=== PATIENT | male | born 2000 | race African-American/Black ===

== ENCOUNTER 2023-08-01 12:23 | Outpatient (CLI) | payer OTHER, SELFPAY | END 2023-08-01 12:24 | disposition home or self-care (01) | LOC: AMB 08-31 13:24 | PROVIDERS: Visit Provider Family Medicine | DX: R06.02 Shortness of breath (principal); R50.9 Fever, unspecified | CPT/HCPCS: A0425; A0427 ==

== ENCOUNTER 2023-08-01 13:00 | Emergency (ER) | payer OTHER, SELFPAY ==
[2023-08-01 13:11] VITALS: BP 141/76; PULSE 100; RESP 18; TEMP 38.3; O2SAT 100; BMI 24.4
--- NOTE | 2023-08-01 13:17 | ED_ITS ---
HPI - General Adult General Chief complaint: Back Injury/Pain Stated complaint: fever,weakness,difficulty breathing Time Seen by Provider: 08/01/23 13:06 History of Present Illness HPI narrative: Patient called campus EMS for severe back pain that began at 5 AM. Pain is constant and all over back. Temperature was also detected. 23-year-old presenting to the emergency department complaint of severe low back pain beginning about 8 hours ago. Will get about 5 this morning took some ibuprofen for some low back pain he was noticing. Also he felt hot. Has taken another dose round 11:00 a.m.. Foreign mg each time. No dysuria frequency urgency. No nausea. No abdominal pain. He is feeling pain that goes from his low back up to the mid back midback in particular gestures to the low thoracic area where he is having maybe spasms of pain is how I would interpret it. Around 11:00 a.m. had escalation of this discomfort and friend made him some tea which they thought might help. His eyes are watering here as were talking which he would attribute to the degree of pain he is having. Does admit to an underlying history of mild scoliosis and with some back aches intermittently but nothing like this. No new trauma. Related Data Previous Rx's Medication Instructions Recorded clindamycin phosphate 1 % topical 1 applic topical QHS #60 mL 09/13/22 solution fluocinolone 0.01 % topical 1 applic topical BID #60 mL 09/13/22 solution minocycline 100 mg capsule 100 mg PO BID #180 caps 09/13/22 Allergies Allergy/AdvReac Type Severity Reaction Status Date / Time No Known Drug Allergies Allergy Verified 07/25/22 13:29 Review of Systems Status of ROS: Reports: 6 or more systems reviewed and unremarkable except as noted in History and below [facility] Social History Smoking Status: Never smoker Do you use any of these nicotine containing products: None Second hand tobacco smoke exposure: No How often do you have a drink containing alcohol: never How often do you have six or more drinks on one occasion: Never AUDIT-C Alcohol total score: 0 Non-prescribed substance use: denies use service: No Exam Narrative: Exam Narrative: Well-nourished. Pleasant. Lying curled up a little bit on his left side. Eyes are watering a little bit. Sclera is injected. Breathing easily. Lungs are clear. Taking deep breath he says exacerbates discomfort. Not exactly reproducible pain over the back. Maybe a little sore. Well-perfused peripherally. Heart in elevated to tachycardic regular rhythm. Abdomen is flat soft and nontender. Oropharynx is moist without erythema. Further exam of the back and assessing alignment is requested, there is some mild elevation of the right shoulder. Const: Vital Signs, click to edit/add: Vital Signs - 24 hr 08/01/23 13:11 Temperature 101.0 F H Pulse Rate [Pulse Oximeter] 100 Respiratory Rate 18 Blood Pressure [Ri ght Upper Arm] 141/76 H Pulse Oximetry 100 Oxygen Delivery Me thod Room Air Documenting provider has reviewed patient's vital signs: yes Course Vital Signs Vital signs: Initial Vital Signs Temperature 101.0 F H 08/01/23 13:11 Temperature Source Oral 08/01/23 13:11 Pulse Rate 100 08/01/23 13:11 Respiratory Rate 18 08/01/23 13:11 Blood Pressure 141/76 H 08/01/23 13:11 Blood Pressure Mean 97 08/01/23 13:11 Pulse Oximetry 100 08/01/23 13:11 Oxygen Delivery Method Room Air 08/01/23 13:11 Vital Signs Temperature 101.0 F H 08/01/23 13:11 Pulse Rate 100 08/01/23 13:11 Respiratory Rate 18 08/01/23 13:11 Blood Pressure 141/76 H 08/01/23 13:11 Pulse Oximetry 100 08/01/23 13:11 Oxygen Delivery Method Room Air 08/01/23 13:11 Temperature 101.0 F H 08/01/23 13:11 Pulse Rate 100 08/01/23 13:11 Respiratory Rate 18 08/01/23 13:11 Blood Pressure 141/76 H 08/01/23 13:11 Pulse Oximetry 100 08/01/23 13:11 Oxygen Delivery Method Room Air 08/01/23 13:11 Medications Administered Medications: Discontinued Medications Generic Name Dose Route Start Last Admin Trade Name Freq PRN Reason Stop Dose Admin Sodium Chloride 1,000 mls @ 1,000 mls/hr 08/01/23 13:35 08/01/23 14:45 0.9 % Sodium Chloride 1000 Ml IV 08/01/23 14:34 Infused .Q1H ONE Infusion Ketorolac Tromethamine 15 mg 08/01/23 13:35 08/01/23 13:45 Ketorolac 15 Mg/Ml Inj IVP 08/01/23 13:36 15 mg ONCE ONE Administration Morphine Sulfate 4 mg 08/01/23 14:42 08/01/23 15:00 Morphine 4 Mg/Ml Inj IVP 08/01/23 14:43 4 mg ONCE ONE Administration Medical Decision Making MDM Narrative Medical decision making narrative: I would suspect more of a viral myalgia maybe with spasms of pain exacerbated by underlying scoliosis. IV fluids would likely help along with ketorolac. In spite of total of 800 mg of ibuprofen taken this morning I think we can re-dose with NSAID. Pending triple swab and urinalysis. Influenza cases diagnosed in the community today. Still noting significant discomfort was given low-dose morphine. Overall improved on reassessment. Indeed positive for influenza which I think is the most likely explanation for presentation here today. See patient discharge plan Lab Data Lab results reviewed: Yes I reviewed the patient's lab results Labs: Lab Results 08/01/23 Range/Units 13:10 Urine Color Yellow (Yellow) Urine Appearance Slightly Cloudy A (Clear) Urine pH 8.5 (5.0-8.5) Ur Specific [place] 1.020 (1.000-1.030) Urine Protein Negative (Negative) Urine Glucose (UA) Negative (Negative) Urine Ketones Negative (Negative) Urine Blood Negative (Negative) Urine Nitrite Negative (Negative) Urine Bilirubin Negative (Negative) Urine Urobilinogen 1.0 (0.2-1.0) Ur Leukocyte Esterase Negative (Negative) Urine RBC 0-2 (0-2) Urine WBC 0-2 (0-5) Ur Squamous Epith Cells None (None-Few) Amorphous Sediment Many A (None) Urine Bacteria None (None) SARS-CoV-2 (PCR) Negative SARS-CoV-2 (Negative) Influenza Type A (PCR) POSITIVE PCR FLU A A (Negative) Influenza Type B (PCR) Negative PCR FLU B (Negative) RSV (PCR) Negative PCR RSV (Negative) Discharge Plan Discharge Clinical Impression: Influenza A, Myalgia due to viral infection Patient Disposition: Home w/ Parent or Adult Instructions: Influenza (ED) Additional Instructions: important to stay well hydrated. Can take up to 800 mg of ibuprofen and up to 1000 mg of acetaminophen per dose. You can rotate these every 4 hours for pain control and symptom relief. Alternative to the ibuprofen might be up to 500 mg of naproxen 2 times daily. Tamiflu from [facility]. Return for persistent increasing shortness of breath or uncontrolled fever. Prescriptions: No Action minocycline 100 mg capsule 100 mg PO BID Qty: 180 0RF clindamycin phosphate 1 % solution 1 applic topical QHS Qty: 60 1RF fluocinolone 0.01 % solution 1 applic topical BID Qty: 60 2RF Follow Up/Referrals: Provider,Not a Local [Primary Care Provider] - Stand Alone Forms: [employer] Info Instructions
[2023-08-01 13:24] LABS: Appearance Urine Slightly Cloudy (Clear); Bilirubin Urine Negative (Negative); Blood Urine Negative (Negative); Color Urine Yellow (Yellow); Glucose Urine Negative (Negative); Ketones Urine Negative (Negative); Leukocyte Esterase Urine Negative (Negative); Nitrite Urine Negative (Negative); Protein Urine Negative (Negative); pH Urine 8.5 (5.0-8.5)
[2023-08-01 13:38] LABS: Amorphous Sediment Urine Many; RBC Urine 0-2 (0-2); WBC Urine 0-2 (0-5)
[2023-08-01] MEDS: KETOROLAC 15 MG/ML inj IVP (13:45)
[2023-08-01] MEDS: 0.9 % SODIUM CHLORIDE 1000 ml 1,000 ML IV (13:45)
[2023-08-01 13:58] LABS: PCR FLU A POSITIVE PCR FLU A (Negative); PCR FLU B Negative PCR FLU B (Negative); PCR RSV Negative PCR RSV (Negative)
[2023-08-01 14:08] LABS: SARS PCR* Negative SARS-CoV-2 (Negative)
[2023-08-01] MEDS: MORPHINE 4 MG/ML INJ IVP (15:00)
== END 2023-08-01 15:27 | disposition home or self-care (01) ==
PROVIDERS: Emergency Provider Family Medicine
DX: J09.X2 Influenza due to identified novel influenza A virus with other respiratory manifestations (principal)
CPT/HCPCS: 81001; 87631; 95992; 96374; 96375; 99283; 99284; J1885; J2270; J7030

== ENCOUNTER 2024-08-03 06:23 | Emergency (ER) | payer BC, SELFPAY ==
--- NOTE | 2024-08-03 06:24 | ED_ITS ---
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 Well controlled) presenting to the ER today for evaluation of burning epigastric abdominal pain. He has no history of GERD or heartburn. He has been feeling normally lately. No recent illness. No fever chills. No nausea vomiting. No diarrhea. Normal bowel movements. Normal urination. Ate a normal meal diet today but this evening had some milk that was by 1 day. He is worried that the milk may have been bad. Since about 11:00 p.m. he has been experiencing some burning epigastric discomfort. It has kept him awake from sleeping. No other symptoms overnight. The pain is not been migratory. No clear exacerbating or alleviating factors. He tried to take some ibuprofen but it did not help. He is not nauseous. No vomiting. Bowel movements nor were normal yesterday. He has no previous abdominal surgeries. No history of diabetes. No drugs or alcohol. Related Data Previous Rx's ?Medication ?Instructions ?Recorded clindamycin phosphate 1 % topical 1 applic topical QHS #60 mL 09/13/22 solution fluocinolone 0.01 % topical 1 applic topical BID #60 mL 09/13/22 solution minocycline 100 mg capsule 100 mg PO BID #180 caps 09/13/22 Allergies Allergy/AdvReac Type Severity Reaction Status Date / Time No Known Drug Allergies Allergy Verified 08/03/24 07:03 [facility] Social History Smoking Status: Never smoker Do you use any of these nicotine containing products: None Second hand tobacco smoke exposure: No How often do you have a drink containing alcohol: never How often do you have six or more drinks on one occasion: Never AUDIT-C Alcohol total score: 0 Non-prescribed substance use: denies use service: No Exam Narrative: Exam Narrative: Constitutional: Appears well-developed and well-nourished. Alert. Conversant. Non toxic. Prefers to sit up because lying back makes his stomach pain her little bit worse. HENT: Head: Atraumatic. Nose: Nose normal. Mouth/Throat: Oral mucosa is clear and moist. no trismus. Pharynx normal. Tonsils symmetric. No tonsillar enlargement, erythema, or exudate. Eyes: Conjunctivae normal. EOM normal. Pupils equal, round, and reactive to light. No scleral icterus. Neck: Normal range of motion. Neck supple. No tracheal deviation present. Cardiovascular: Normal rate, regular rhythm. No gallop. No friction rub. No murmur heard. Symmetric radial artery pulses Pulmonary/Chest: Effort normal. No stridor. No respiratory distress. No wheezes. No rales. No rhonchi . No tenderness. Abdominal: Soft. Bowel sounds normal. No distension. No mass. Epigastric > upper periumbilical tenderness. No right upper quadrant tenderness. No Sun sign. No left upper quadrant tenderness. Negative hepatosplenomegaly. No CVA tenderness. No lower abdominal tenderness. He does have a nontender soft 2-3 cm umbilical hernia defect that I do not think contains bowel. No rebound. No guarding. Musculoskeletal: RUE: Normal range of motion. No tenderness. No deformity LUE: Normal range of motion. No tenderness. No deformity RLE: Normal range of motion. No edema. No tenderness. No deformity LLE: Normal range of motion. No edema. No tenderness. No deformity Neurological: Alert and oriented to person, place, and time. Normal strength. CN II-VII intact. No sensory deficit. GCS eye subscore is 4. GCS verbal subscore is 5. GCS motor subscore is 6. Normal coordination Skin: Skin is warm and dry. No rash noted. No pallor. Normal capillary refill. Psychiatric: Normal mood. Normal affect. Const: Vital Signs, click to edit/add: Vital Signs - 24 hr 08/03/24 06:31 08/03/24 06:58 08/03/24 07:30 Temperature 98.3 F Pulse Rate [Pulse Oximeter] 73 68 Respiratory Rate 16 16 Blood Pressure [Ri ght Upper Arm] 149/94 H 133/80 Pulse Oximetry 100 100 98 Oxygen Delivery Me thod Room Air Room Air Course Course ED Course: After GI cocktail patient experience nausea and vomiting with no her resolution of pain. Will order IV, IV nausea and pain medication, labs, CT imaging. At this point presentation still most consistent with probable possible food-borne illness from milk or possibly a viral illness or possibly gastritis. Differential would also include early appendicitis, diverticulitis, colitis, among others Reevaluation(s) Reevaluation #1: Recheck-resting comfortably in bed. Nausea and pain resolved after meds. Feeling much better. Vital Signs Vital signs: Initial Vital Signs Temperature 98.3 F 08/03/24 06:31 Temperature Source Temporal Artery Scan 08/03/24 06:31 Pulse Rate 73 08/03/24 06:31 Respiratory Rate 16 08/03/24 06:31 Blood Pressure 149/94 H 08/03/24 06:31 Blood Pressure Mean 112 H 08/03/24 06:31 Blood Pressure Position Sitting 08/03/24 06:31 Pulse Oximetry 100 08/03/24 06:31 Oxygen Delivery Method Room Air 08/03/24 06:31 Vital Signs Temperature 98.3 F 08/03/24 06:31 Pulse Rate 73 08/03/24 06:31 Respiratory Rate 16 08/03/24 06:31 Blood Pressure 149/94 H 08/03/24 06:31 Pulse Oximetry 100 08/03/24 06:31 Oxygen Delivery Method Room Air 08/03/24 06:31 Temperature 98.3 F 08/03/24 06:31 Pulse Rate 68 08/03/24 07:30 Respiratory Rate 16 08/03/24 07:30 Blood Pressure 133/80 08/03/24 07:30 Pulse Oximetry 98 08/03/24 07:30 Oxygen Delivery Method Room Air 08/03/24 07:30 Medications Administered Medications: Generic Name Dose Route Start Last Admin Trade Name Freq PRN Reason Stop Dose Admin Hydromorphone HCl 0.5 mg 08/03/24 06:44 08/03/24 06:53 Hydromorphone 0.5 Mg/0.5 Ml Inj IVP 0.5 mg Q1H PRN Administration Pain Discontinued Medications Generic Name Dose Route Start Last Admin Trade Name Freq PRN Reason Stop Dose Admin Lidocaine/Aluminum/Magnesium/Simeth 30 ml 08/03/24 06:37 08/03/24 06:41 Gi Cocktail (Visc Lido/Antacid) 30 Ml PO 08/03/24 06:38 30 ml ONCE ONE Administration Ondansetron HCl 4 mg 08/03/24 06:44 08/03/24 06:53 Ondansetron 2 Mg/Ml Inj IVP 08/03/24 06:45 4 mg ONCE ONE Administration Medical Decision Making MDM Narrative Medical decision making narrative: Presented to the Emergency Department with Upper/epigastric abdominal pain. The differential diagnosis of abdominal pain includes: GERD, gastritis, Appendicitis, Bowel Obstruction, Ulcer, Ischemia, Cholecystitis, Diverticulitis, Pancreatitis, Enteritis/Colitis, amongst many other etiologies. he is not having any lower abdominal pain or urinary symptoms to suggest UTI. Incidentally, he does have a soft, nontender, small umbilical hernia which is not the source for his pain today.Laboratory testing does not reveal a cause for the patient's pain. CT abdomen pelvis noted to be normal. The exact etiology of the abdominal pain is not clear at this time. however he suspects it may have been triggered by drinking some milk that was last night. No life threatening cause or need for emergent surgery or hospital admission is detected today. The patient was advised that if symptoms do not completely resolve within another 12-24 hours re-evaluation with primary care or return to the ED is indicated. The patient also understands that if they worsen, they should return to the ER right away. I discussed the uncertainty about the diagnosis and answered the patient's questions. Abdominal pain return precautions discussed.[] Lab Data Labs: Lab Results 08/03/24 Range/Units 06:55 WBC 7.01 (4.50-11.00) K/uL RBC 6.39 H (4.30-5.90) m/uL Hgb 13.5 (13.5-17.5) gm/dL Hct 44.4 (37.0-53.0) % MCV 70 L (80-100) fL MCH 21 L (26-34) pg MCHC 30 L (32-36) gm/dL RDW Coeff of Yvette 14.7 (11.5-15.5) % Plt Count 210 (140-440) K/uL Neut % (Auto) 65.7 (42.0-72.0) % Lymph % (Auto) 21.5 (20-44) % [place] % (Auto) 7.3 (0.0-11.0) % Eos % (Auto) 4.4 (0.0-7.0) % Baso % (Auto) 0.4 (0.0-3.0) % Neut # (Auto) 4.60 (1.7-7.0) K/uL Lymph # (Auto) 1.51 (0.90-2.90) K/uL [place] # (Auto) 0.50 (0.00-0.90) K/UL Eos # (Auto) 0.31 (0.00-0.50) K/uL Baso # (Auto) 0.03 (0.00-0.30) K/uL Abs Immat Gran (auto) 0.05 (0.00-0.30) K/uL Imm/Tot Granulo (auto) 0.7 % Diff Slide Review Acceptable Review (Acceptable) Sodium 139 (135-149) mmol/L Potassium 4.0 (3.6-5.1) mmol/L Chloride 103 (96-114) mmol/L Carbon Dioxide 26 (20-32) mmol/L Anion Gap 10 (7-15) mEq/L BUN 14 (5-24) mg/dL Creatinine 1.0 (0.5-1.5) mg/dL Estimated Creat Clear 115.58 Estimated GFR 106 ml/min Glucose 127 H (60-115) mg/dL Calcium 9.6 (8.4-10.6) mg/dL Total Bilirubin 0.3 (0.1-1.5) mg/dL AST 27 (12-35) U/L ALT 19 (4-50) U/L Alkaline Phosphatase 74 (40-150) U/L Total Protein 8.5 H (6.0-8.3) g/dL Albumin 5.0 (3.3-5.0) g/dL Lipase 145 (23-300) U/L Imaging Data CT scan - abdomen: Attestation: I have reviewed the pertinent imaging results. Radiologist's impression: IMPRESSION: 1. There is a small fat containing umbilical hernia that also contains a loop of small bowel. The fat in this area does not appear to be inflamed and the loop of bowel does not appear to be associated with obstruction or inflammation. Correlate with point tenderness in this area. 2. Moderate diffuse colonic fecal retention without evidence of mechanical obstruction of the large bowel. The appendix is well seen and appears normal. 3. Otherwise overall unremarkable CT examination of the abdomen and pelvis. Discharge Plan Discharge Clinical Impression: Abdominal pain, acute, epigastric Patient Disposition: Home, Self-Care Condition: Stable Instructions: Abdominal Pain (ED) Additional Instructions: please come back to the ER right away if you have worsening symptoms, new or changing symptoms such as new fever or chills, uncontrolled nausea vomiting, bloody vomit or bloody stool, pain moving to her lower abdomen or through to her back, or if you have any other concerns. Please recheck with your doctor or come back to the ER in 24 hours if your pain is not resolving. Prescriptions: No Action minocycline 100 mg capsule 100 mg PO BID Qty: 180 0RF clindamycin phosphate 1 % solution 1 applic topical QHS Qty: 60 1RF fluocinolone 0.01 % solution 1 applic topical BID Qty: 60 2RF Follow Up/Referrals: Provider,Not a Local [Primary Care Provider] - Stand Alone Forms: [employer] Info Instructions
[2024-08-03 06:31] VITALS: BP 149/94; PULSE 73; RESP 16; TEMP 36.8; O2SAT 100; BMI 23.7
[2024-08-03] MEDS: GI COCKTAIL (VISC LIDO/ANTACID) 30 ML PO (06:41)
--- NOTE | 2024-08-03 06:44 | CRLHL7_ITS ---
For Patients: As a result of the 21st Century Cures Act, medical imaging exams and procedure reports are released immediately into your electronic medical record. You may view this report before your referring provider. If you have questions, please contact your health care provider. INDICATION: Epigastric abdominal pain. Vomiting. COMPARISON: None TECHNIQUE: CT examination of the abdomen and pelvis was performed following the uneventful intravenous administration of 81 cc of Isovue 370. Thin section axial images were obtained from the lung bases through the pubic symphysis. Oral contrast was not administered. Please note that all CT scans at this facility use dose modulation, iterative reconstruction, and/or weight-based dosing when appropriate to reduce radiation dose to as low as reasonably achievable. FINDINGS: LUNG BASES: The lung bases as visualized appear normal.The heart size is normal at the lung bases. LIVER/BILIARY SYSTEM:The liver is normal in size and configuration. There is no focal mass and there is no intra- or extra hepatic biliary ductal dilatation.The gall bladder appears normal. ADRENALS: Normal KIDNEYS, URETERS and BLADDER:The kidneys appear normal. No visible mass, calculus or hydronephrosis. The ureters and bladder as visualized appear normal. SPLEEN:Normal appearance. PANCREAS: Appears normal. RETROPERITONEUM and MESENTERY: There is no mass, adenopathy or aortic aneurysm. GASTROINTESTINAL SYSTEM: No evidence of bowel obstruction. No specific GI abnormality in the upper abdomen to explain epigastric pain. Moderate diffuse colonic fecal retention without mechanical obstruction. No evidence of diverticulitis or colitis. The appendix is well seen and appears normal. PELVIS: No mass, adenopathy or free fluid. OSSEOUS STRUCTURES and ABDOMINAL WALL: There is a fat containing and small bowel containing umbilical hernia. The fat does not appear to be inflamed and the loop of bowel does not appear to be associated with obstruction or inflammation. Correlate with point tenderness in this area. OTHER: No free fluid or free air. IMPRESSION: 1. There is a small fat containing umbilical hernia that also contains a loop of small bowel. The fat in this area does not appear to be inflamed and the loop of bowel does not appear to be associated with obstruction or inflammation. Correlate with point tenderness in this area. 2. Moderate diffuse colonic fecal retention without evidence of mechanical obstruction of the large bowel. The appendix is well seen and appears normal. 3. Otherwise overall unremarkable CT examination of the abdomen and pelvis. Please note that all CT scans at this facility use dose modulation, iterative reconstruction, and/or weight-based dosing when appropriate to reduce radiation dose to as low as reasonably achievable. Dictated by Mir Horn MD @ 08/03/2024 7:16:18 AM (Electronically Signed)
[2024-08-03] MEDS: ONDANSETRON 2 MG/ML inj 4 MG IVP (06:53)
[2024-08-03] MEDS: HYDROmorphone 0.5 mg/0.5 ml inj IVP (06:53)
[2024-08-03 06:58] VITALS: O2SAT 100
[2024-08-03 07:07] LABS: Basophils Absolute Auto 0.03 K/uL (0.00-0.30); Basophils Percent Auto 0.4 % (0.0-3.0); Eosinophils Absolute Auto 0.31 K/uL (0.00-0.50); Eosinophils Percent Auto 4.4 % (0.0-7.0); Hematocrit 44.4 % (37.0-53.0); Hemoglobin* 13.5 gm/dL (13.5-17.5); Immature Granulocytes Abs Auto 0.05 K/uL (0.00-0.30); Immature Granulocytes Pct Auto 0.7 %; Lymphocytes Absolute Auto 1.51 K/uL (0.90-2.90); Lymphocytes Percent Auto 21.5 % (20-44); Mean Corpuscular HGB Conc 30 gm/dL (32-36); Mean Corpuscular Hemoglobin 21 pg (26-34); Mean Corpuscular Volume 70 fL (80-100); Monocytes Percent Auto 7.3 % (0.0-11.0); Neutrophils Percent Auto 65.7 % (42.0-72.0); Platelet Count* 210 K/uL (140-440); RDW Coefficient of Variation % 14.7 % (11.5-15.5); Red Blood Count 6.39 m/uL (4.30-5.90); White Blood Count* 7.01 K/uL (4.50-11.00)
[2024-08-03 07:14] LABS: Slide Review Reflex Yes
[2024-08-03 07:15] LABS: Slide Review Acceptable Review (Acceptable)
[2024-08-03 07:17] LABS: Chloride* 103 mmol/L (96-114); Sodium* 139 mmol/L (135-149)
[2024-08-03 07:19] LABS: Anion Gap 10 mEq/L (7-15); Aspartate Amino Transferase* 27 U/L (12-35); Bilirubin Total* 0.3 mg/dL (0.1-1.5); Carbon Dioxide* 26 mmol/L (20-32); Est. Creatinine Clearance* 115.58; Estimated Glomerular Filt Rate 106 ml/min
[2024-08-03 07:20] LABS: Alanine Aminotransferase* 19 U/L (4-50); Alkaline Phosphatase* 74 U/L (40-150); Blood Urea Nitrogen* 14 mg/dL (5-24); Calcium* 9.6 mg/dL (8.4-10.6); Glucose* 127 mg/dL (60-115); Lipase* 145 U/L (23-300); Total Protein* 8.5 g/dL (6.0-8.3)
[2024-08-03 07:30] VITALS: BP 133/80; PULSE 68; RESP 16; O2SAT 98
== END 2024-08-03 08:03 | disposition home or self-care (01) ==
PROVIDERS: Emergency Provider Emergency Medicine
DX: R10.13 Epigastric pain (principal)
CPT/HCPCS: 36415; 74177; 80053; 83690; 85025; 94761; 96374; 99283; 99284; 99285; A9270; J1171; J2405; Q9967

== ENCOUNTER 2024-08-04 19:12 | Emergency (ER) | payer BC, SELFPAY ==
[2024-08-04 19:45] VITALS: BP 145/80; PULSE 62; RESP 16; TEMP 37.6; O2SAT 98; BMI 21.8
--- NOTE | 2024-08-04 20:42 | CRLHL7_ITS ---
For Patients: As a result of the Century Cures Act, medical imaging exams and procedure reports are released immediately into your electronic medical record. You may view this report before your referring provider. If you have questions, please contact your health care provider. INDICATION: Right upper quadrant pain. TECHNIQUE: Ultrasound abdomen limited. COMPARISON: CT abdomen and pelvis 08/03/2024. FINDINGS: Gallbladder: There are 2 small echogenic foci along the wall of the gallbladder measuring up to 4 mm, compatible with polyps. No stone identified. Normal wall thickness. No pericholecystic fluid. Negative sonographic Sun`s sign. Common bile duct: Non-dilated, measuring 3 mm. IMPRESSION: Two small gallbladder polyps measuring up to 4 mm. No cholelithiasis or evidence for cholecystitis. Dictated by Papo Vasquez MD @ 08/04/2024 9:41:32 PM (Electronically Signed)
--- NOTE | 2024-08-04 20:45 | ED.ABDPAIN ---
HPI - Abdominal Pain General Time Seen by Provider: 20:45 Date Seen: 08/04/24 Chief Complaint: Abdominal Pain Stated Complaint: stomach pain Time Seen by Provider: 08/04/24 20:45 Source: patient, RN notes reviewed and old records reviewed Mode of arrival: ambulatory Limitations: no limitations History of Present Illness HPI narrative: A patient is a very pleasant 24-year-old gentleman previously healthy who returns to the emergency room with abdominal pain. Patient notes he has 4/10 abdominal pain at this time that he shows to be in the epigastric area. He notes that it comes and goes and when it is gone he feels an empty sensation in his stomach. He has not had any fever or chills. He has not had this in the past. He did undergo CT yesterday which he was told was normal. The patient does note that pain initially improves after eating but then worsens. He has no other medical issues. Movement does not seem to or changes pain Related Data Previous Rx's ?Medication ?Instructions ?Recorded clindamycin phosphate 1 % topical 1 applic topical QHS #60 mL 09/13/22 solution fluocinolone 0.01 % topical 1 applic topical BID #60 mL 09/13/22 solution minocycline 100 mg capsule 100 mg PO BID #180 caps 09/13/22 Allergies Allergy/AdvReac Type Severity Reaction Status Date / Time No Known Drug Allergies Allergy Verified 08/03/24 07:03 Review of Systems Status of ROS Reports: 6 or more systems reviewed and unremarkable except as noted in History and below Const Denies: fever or chills Cardio Denies: chest pain or shortness of breath with exertion Resp Denies: shortness of breath or cough GI Reports: abdominal pain and nausea; Denies: diarrhea or constipation PFSH PFSH Social History Smoking Status: Never smoker Do you use any of these nicotine containing products: None Second hand tobacco smoke exposure: No How often do you have a drink containing alcohol: never How often do you have six or more drinks on one occasion: Never AUDIT-C Alcohol total score: 0 Non-prescribed substance use: denies use service: No Exam Narrative: Exam Narrative: The patient is alert and oriented. Very well-spoken gentleman in no acute distress. External ears eyes nose clear. Heart with regular rate and rhythm and lungs are clear to auscultation. Abdomen shows discomfort in the epigastrium and right upper quadrant. Patient has a positive Sun sign. Bowel sounds are normal and present. There is no abdominal distension. Moving all extremities. Const: Vital Signs, click to edit/add: Vital Signs - 24 hr 08/04/24 19:45 08/04/24 20:48 08/04/24 21:58 Temperature 99.6 F 99.6 F 99.6 F Pulse Rate [Pulse Oximeter] 62 Respiratory Rate 16 Blood Pressure [Ri ght Upper Arm] 145/80 H Pulse Oximetry 98 Oxygen Delivery Me thod Room Air Documenting provider has reviewed patient's vital signs: yes Course Course ED Course: Differential diagnosis includes but is not limited to biliary colic, gastritis, constipation, colitis. Given the fact that CT did not show any evidence of cholelithiasis and was otherwise reassuring will obtain ultrasound this evening. Will recheck CBC, comprehensive panel and CRP as well as lipase. Note that the CT from yesterday it does show moderate diffuse colonic fecal retention with no mechanical obstruction. The appendix was normal. There was a fat containing umbilical hernia. Patient has no pain in this area. Reevaluation(s) Reevaluation #1: Patient feeling better after medications. Reevaluation #2: Previous CT reviewed by myself as well as labs from yesterday. Vital Signs Vital signs: Initial Vital Signs Temperature 99.6 F 08/04/24 19:45 Temperature Source Temporal Artery Scan 08/04/24 19:45 Pulse Rate 62 08/04/24 19:45 Respiratory Rate 16 08/04/24 19:45 Blood Pressure 145/80 H 08/04/24 19:45 Blood Pressure Mean 101 08/04/24 19:45 Blood Pressure Position Sitting 08/04/24 19:45 Pulse Oximetry 98 08/04/24 19:45 Oxygen Delivery Method Room Air 08/04/24 19:45 Vital Signs Temperature 99.6 F 08/04/24 19:45 Pulse Rate 62 08/04/24 19:45 Respiratory Rate 16 08/04/24 19:45 Blood Pressure 145/80 H 08/04/24 19:45 Pulse Oximetry 98 08/04/24 19:45 Oxygen Delivery Method Room Air 08/04/24 19:45 Temperature 99.6 F 08/04/24 21:58 Pulse Rate 62 08/04/24 19:45 Respiratory Rate 16 08/04/24 19:45 Blood Pressure 145/80 H 08/04/24 19:45 Pulse Oximetry 98 08/04/24 19:45 Oxygen Delivery Method Room Air 08/04/24 19:45 Medications Administered Medications: Discontinued Medications Generic Name Dose Route Start Last Admin Trade Name Chela PRN Reason Stop Dose Admin Ketorolac Tromethamine 15 mg 08/04/24 20:42 08/04/24 20:48 Ketorolac 15 Mg/Ml Inj IVP 08/04/24 20:43 15 mg ONCE ONE Administration Pantoprazole Sodium 40 mg 08/04/24 21:45 08/04/24 21:57 Pantoprazole Sodium 40 Mg Inj IVP 08/04/24 21:46 40 mg ONCE ONE Administration MDM - Abdominal Pain MDM Narrative Medical decision making narrative: 1. Biliary colic-patient noted to have no evidence of cholecystitis cholelithiasis but does have to small polyps in the gallbladder. He is certainly describing biliary colic. With reassuring laboratory values, vital signs and no evidence of a fever I am asking him to follow-up with 1 of our surgeons. I suspect he may need a HIDA scan. In the interim placing him on omeprazole 20 mg daily. He did receive Protonix 40 mg here in the ED. He may use ibuprofen or Tylenol as needed for discomfort. He should return for fever, vomiting and as needed. 2. Fecal retention -noted on the CT from yesterday. While I am not sure that this will change his pain I do think he should try some MiraLax to see if he has any improvement. 3. Disposition-home at this time. Return for worsening symptoms and as needed. Medical Records Attestation: I reviewed the patient's medical records. Lab Data Attestation: I reviewed the patient's lab results. Labs: Lab Results 08/04/24 Range/Units 20:50 WBC 5.88 (4.50-11.00) K/uL RBC 6.59 H (4.30-5.90) m/uL Hgb 13.8 (13.5-17.5) gm/dL Hct 45.5 (37.0-53.0) % MCV 69 L (80-100) fL MCH 21 L (26-34) pg MCHC 30 L (32-36) gm/dL RDW Coeff of Yvette 15.4 (11.5-15.5) % Plt Count 198 (140-440) K/uL Neut % (Auto) 57.3 (42.0-72.0) % Lymph % (Auto) 27.4 (20-44) % Har[place]on % (Auto) 10.7 (0.0-11.0) % Eos % (Auto) 3.6 (0.0-7.0) % Baso % (Auto) 0.3 (0.0-3.0) % Neut # (Auto) 3.37 (1.7-7.0) K/uL Lymph # (Auto) 1.61 (0.90-2.90) K/uL Har[place]on # (Auto) 0.60 (0.00-0.90) K/UL Eos # (Auto) 0.21 (0.00-0.50) K/uL Baso # (Auto) 0.02 (0.00-0.30) K/uL Abs Immat Gran (auto) 0.04 (0.00-0.30) K/uL Imm/Tot Granulo (auto) 0.7 % Sodium 138 (135-149) mmol/L Potassium 4.0 (3.6-5.1) mmol/L Chloride 103 (96-114) mmol/L Carbon Dioxide 25 (20-32) mmol/L Anion Gap 10 (7-15) mEq/L BUN 9 (5-24) mg/dL Creatinine 1.0 (0.5-1.5) mg/dL Estimated Creat Clear 109.16 Estimated GFR 106 ml/min Glucose 99 (60-115) mg/dL Calcium 9.6 (8.4-10.6) mg/dL Total Bilirubin 0.2 (0.1-1.5) mg/dL AST 23 (12-35) U/L ALT 16 (4-50) U/L Alkaline Phosphatase 61 (40-150) U/L C-Reactive Protein < 0.5 L (0.5-1.0) mg/dL Total Protein 7.9 (6.0-8.3) g/dL Albumin 4.7 (3.3-5.0) g/dL Lipase 30 (23-300) U/L Imaging Data Abdominal ultrasound: Attestation: I have reviewed the pertinent imaging results. Radiologist's impression: Gallbladder: There are 2 small echogenic foci along the wall of the gallbladder measuring up to 4 mm, compatible with polyps. No stone identified. Normal wall thickness. No pericholecystic fluid. Negative sonographic Sun`s sign. Common bile duct: Non-dilated, measuring 3 mm. IMPRESSION: Two small gallbladder polyps measuring up to 4 mm. No cholelithiasis or evidence for cholecystitis. Discharge Plan Discharge Clinical Impression: Biliary colic, Abdominal pain Patient Disposition: Home, Self-Care Condition: Improved Additional Instructions: 1. You were given a medication called Protonix here in the emergency room and this helps to limit acid production in the stomach. I am hoping that if we can control the acid production your pain will improve. Continue using the [id number] equivalent called omeprazole 1 tablet daily for 2 weeks. This is taken every 24 hours. Recommend bland foods for now. 2. Ibuprofen or Tylenol as needed for discomfort 3. Recommend the use of MiraLax, 1 cap full or 1 does twice a day until you have loose stools and then you may discontinue. Your CT did show a lot of stool in the bowels. I am not sure that this is causing your discomfort but we should address this to see if pain gets better after stool softeners. 4. Follow-up with our surgeons for evaluation regarding polyps in the gallbladder and abdominal pain. You can make an appointment by calling [phone]. There are 3 surgeons and they are all very good. I would take the 1st appointment available. Return to the emergency room for worsening symptoms. Prescriptions: No Action minocycline 100 mg capsule 100 mg PO BID Qty: 180 0RF clindamycin phosphate 1 % solution 1 applic topical QHS Qty: 60 1RF fluocinolone 0.01 % solution 1 applic topical BID Qty: 60 2RF Follow Up/Referrals: Provider,Not a Local [Primary Care Provider] - Stand Alone Forms: [employer] Info Instructions
[2024-08-04 20:48] VITALS: TEMP 37.6
[2024-08-04] MEDS: KETOROLAC 15 MG/ML inj IVP (20:48)
[2024-08-04 20:50] VITALS: O2SAT 98
[2024-08-04 20:55] LABS: Basophils Absolute Auto 0.02 K/uL (0.00-0.30); Basophils Percent Auto 0.3 % (0.0-3.0); Eosinophils Absolute Auto 0.21 K/uL (0.00-0.50); Eosinophils Percent Auto 3.6 % (0.0-7.0); Hematocrit 45.5 % (37.0-53.0); Hemoglobin* 13.8 gm/dL (13.5-17.5); Immature Granulocytes Abs Auto 0.04 K/uL (0.00-0.30); Immature Granulocytes Pct Auto 0.7 %; Lymphocytes Absolute Auto 1.61 K/uL (0.90-2.90); Lymphocytes Percent Auto 27.4 % (20-44); Mean Corpuscular HGB Conc 30 gm/dL (32-36); Mean Corpuscular Hemoglobin 21 pg (26-34); Mean Corpuscular Volume 69 fL (80-100); Monocytes Percent Auto 10.7 % (0.0-11.0); Neutrophils Absolute Auto 3.37 K/uL (1.7-7.0); Neutrophils Percent Auto 57.3 % (42.0-72.0); Platelet Count* 198 K/uL (140-440); RDW Coefficient of Variation % 15.4 % (11.5-15.5); Red Blood Count 6.59 m/uL (4.30-5.90); White Blood Count* 5.88 K/uL (4.50-11.00)
[2024-08-04 21:02] LABS: Slide Review Reflex No
[2024-08-04 21:07] LABS: Albumin* 4.7 g/dL (3.3-5.0); Chloride* 103 mmol/L (96-114)
[2024-08-04 21:08] LABS: Sodium* 138 mmol/L (135-149)
[2024-08-04 21:10] LABS: Bilirubin Total* 0.2 mg/dL (0.1-1.5); Est. Creatinine Clearance* 109.16; Estimated Glomerular Filt Rate 106 ml/min
[2024-08-04 21:11] LABS: Alanine Aminotransferase* 16 U/L (4-50); Alkaline Phosphatase* 61 U/L (40-150); Anion Gap 10 mEq/L (7-15); Aspartate Amino Transferase* 23 U/L (12-35); Blood Urea Nitrogen* 9 mg/dL (5-24); Calcium* 9.6 mg/dL (8.4-10.6); Carbon Dioxide* 25 mmol/L (20-32); Glucose* 99 mg/dL (60-115); Lipase* 30 U/L (23-300); Total Protein* 7.9 g/dL (6.0-8.3)
[2024-08-04 21:14] LABS: C Reactive Protein* < 0.5 mg/dL (0.5-1.0)
[2024-08-04] MEDS: PANTOPRAZOLE SODIUM 40 MG INJ IVP (21:57)
[2024-08-04 21:58] VITALS: TEMP 37.6
[2024-08-04 22:03] VITALS: BP 132/70; PULSE 68; RESP 16; TEMP 37.6; O2SAT 98
[2024-08-04 22:05] VITALS: BP 132/70; PULSE 68; RESP 16; TEMP 37.6
== END 2024-08-04 22:14 | disposition home or self-care (01) ==
PROVIDERS: Emergency Provider Family Medicine
DX: K80.50 Calculus of bile duct without cholangitis or cholecystitis without obstruction (principal)
CPT/HCPCS: 36415; 76705; 80053; 83690; 85025; 86140; 94761; 96374; 96375; 99284; J1885; J2470

== ENCOUNTER 2024-08-09 03:03 | Emergency (ER) | payer BC, SELFPAY ==
[2024-08-09 03:07] VITALS: BP 151/84; PULSE 82; RESP 16; TEMP 36.1; O2SAT 100; BMI 25.8
--- NOTE | 2024-08-09 03:23 | CRLHL7_ITS ---
For Patients: As a result of the Century Cures Act, medical imaging exams and procedure reports are released immediately into your electronic medical record. You may view this report before your referring provider. If you have questions, please contact your health care provider. Indication: Upper mid abdominal pain for 1 week. Technique: CT of the abdomen and pelvis was performed following the administration of 89 mL Isovue 370. Comparison: 08/04/2024 ultrasound and [id number] cc. Findings: Visualized lung bases: Clear. Liver: Too small to characterize hypodensity within the right hepatic lobe, unchanged. Normal gallbladder. No biliary ductal dilation. Pancreas: Unremarkable. Spleen: Unremarkable. Adrenals: Unremarkable. Kidneys: Unremarkable. No nephrolithiasis or hydronephrosis. Aorta/IVC: Normal in caliber. Lymph nodes: No lymphadenopathy. Bowel: Nonobstructed bowel. The stomach is decompressed with mild wall thickening. Appendix is normal. No localized inflammatory changes. Umbilical hernia containing an air-filled loop small bowel, mildly increased in size compared to 08/03/2024. Moderate amount of stool within the colon. No intraperitoneal free air or fluid. Pelvis: Unremarkable. Bones/body wall: Umbilical hernia as described. Otherwise unremarkable. Impression: 1. Umbilical hernia containing a loop of nondilated air-filled small bowel, slightly increased in size compared to 08/03/2024. No upstream bowel dilation is present. 2. Mild gastric wall thickening, possibly related to underdistention versus mild gastritis. 3. Moderate colonic fecal burden. Please note that all CT scans at this facility use dose modulation, iterative reconstruction, and/or weight-based dosing when appropriate to reduce radiation dose to as low as reasonably achievable. Dictated by Elvira Henriquez MD @ 08/09/2024 5:02:02 AM (Electronically Signed)
--- NOTE | 2024-08-09 04:15 | ED_ITS ---
HPI - Abdominal Pain General Chief Complaint: Abdominal Pain Stated Complaint: Stomach pain Time Seen by Provider: 08/09/24 03:16 History of Present Illness HPI narrative: Patient is a 24-year-old gentleman who making his 3rd visit to the emergency room for abdominal pain this month. He has been seen for epigastric abdominal pain and there was some concern of gallbladder pain. He was to have follow-up with General surgery for possible HIDA scan. He is on proton pump inhibitor. He comes in tonight with worsening epigastric and now left upper quadrant pain. Previous workup that showed microcytosis without anemia. Patient has had no blood in his stool no nausea no vomiting no fevers no chills. His pain is intermittent and improved with flatus. No reflux symptoms. Patient is on a proton pump inhibitor. No other aggravating factors noted. Related Data Previous Rx's ?Medication ?Instructions ?Recorded clindamycin phosphate 1 % topical 1 applic topical QHS #60 mL 09/13/22 solution fluocinolone 0.01 % topical 1 applic topical BID #60 mL 09/13/22 solution minocycline 100 mg capsule 100 mg PO BID #180 caps 09/13/22 sucralfate 1 gram tablet 1 g PO BID #60 tabs 08/09/24 Allergies Allergy/AdvReac Type Severity Reaction Status Date / Time No Known Drug Allergies Allergy Verified 08/03/24 07:03 Review of Systems Status of ROS Reports: 10 or more systems reviewed and unremarkable except as noted in History and below [facility] Social History Smoking Status: Never smoker Do you use any of these nicotine containing products: None Second hand tobacco smoke exposure: No How often do you have a drink containing alcohol: never How often do you have six or more drinks on one occasion: Never AUDIT-C Alcohol total score: 0 Non-prescribed substance use: denies use service: No Exam Narrative: Exam Narrative: EXAM GENERAL: Patient appears comfortable and well. EYES: No scleral icterus. LYMPH: No supraclavicular or cervical lymphadenopathy. SKIN: Visible skin seen during exam normal or with benign process only. EXT: No dependent lower extremity pedal edema. HEART: Regular rate and rhythm with no murmurs, rubs, or gallops. LUNGS: Clear to auscultation bilaterally with no crackles or wheezes. ABD: Soft, non tender, non distended. PSYCH: Good eye contact, speech is not pressured. Const: Vital Signs, click to edit/add: Vital Signs - 24 hr 08/09/24 03:07 Temperature 96.9 F L Pulse Rate [Left P ulse Oximeter] 82 Respiratory Rate 16 Blood Pressure [Ri ght Upper Arm] 151/84 H Pulse Oximetry 100 Oxygen Delivery Me thod Room Air Course Course ED Course: Patient seen examined. Repeat CT abdomen pelvis CBC comprehensive metabolic panel lipase ordered. Vital Signs Vital signs: Initial Vital Signs Temperature 96.9 F L 08/09/24 03:07 Temperature Source Temporal Artery Scan 08/09/24 03:07 Pulse Rate 82 08/09/24 03:07 Pulse Rhythm Regular 08/09/24 03:07 Respiratory Rate 16 08/09/24 03:07 Blood Pressure 151/84 H 08/09/24 03:07 Blood Pressure Mean 106 H 08/09/24 03:07 Blood Pressure Position Sitting 08/09/24 03:07 Pulse Oximetry 100 08/09/24 03:07 Oxygen Delivery Method Room Air 08/09/24 03:07 Vital Signs Temperature 96.9 F L 08/09/24 03:07 Pulse Rate 82 08/09/24 03:07 Respiratory Rate 16 08/09/24 03:07 Blood Pressure 151/84 H 08/09/24 03:07 Pulse Oximetry 100 08/09/24 03:07 Oxygen Delivery Method Room Air 08/09/24 03:07 Temperature 96.9 F L 08/09/24 03:07 Pulse Rate 82 08/09/24 03:07 Respiratory Rate 16 08/09/24 03:07 Blood Pressure 151/84 H 08/09/24 03:07 Pulse Oximetry 100 08/09/24 03:07 Oxygen Delivery Method Room Air 08/09/24 03:07 Medications Administered Medications: Generic Name Dose Route Start Last Admin Trade Name Freq PRN Reason Stop Dose Admin Sucralfate 1 gm 08/09/24 04:18 08/09/24 04:37 Sucralfate 1 Gm Tablet PO 08/09/24 04:19 1 gm ONCE ONE Administration MDM - Abdominal Pain MDM Narrative Medical decision making narrative: Patient is a 24-year-old gentleman comes in today with left upper quadrant pain. He had been seen previously for abdominal pain was more right upper quadrant pain. He has been taking stiff doses of ibuprofen which may be contributing to his left upper quadrant pain. I did repeat his CT scan and no other acute abnormalities were seen umbilical hernia unchanged not showing any signs of acute incarceration. I am concerned about his microcytosis. Will discontinue ibuprofen at this point. I did add sucralfate to his proton pump inhibitor. He does have ongoing outpatient workup in progress. Tylenol for pain. Lab Data Labs: Lab Results 08/09/24 08/09/24 Range/Units 03:50 04:10 WBC 4.92 (4.50-11.00) K/uL RBC 6.33 H (4.30-5.90) m/uL Hgb 13.2 L (13.5-17.5) gm/dL Hct 43.6 (37.0-53.0) % MCV 69 L (80-100) fL MCH 21 L (26-34) pg MCHC 30 L (32-36) gm/dL RDW Coeff of Yvette 14.8 (11.5-15.5) % Plt Count 220 (140-440) K/uL Neut % (Auto) 36.2 L (42.0-72.0) % Lymph % (Auto) 44.7 H (20-44) % Travis % (Auto) 11.6 H (0.0-11.0) % Eos % (Auto) 6.3 (0.0-7.0) % Baso % (Auto) 0.2 (0.0-3.0) % Neut # (Auto) 1.80 (1.7-7.0) K/uL Lymph # (Auto) 2.20 (0.90-2.90) K/uL Travis # (Auto) 0.60 (0.00-0.90) K/UL Eos # (Auto) 0.31 (0.00-0.50) K/uL Baso # (Auto) 0.01 (0.00-0.30) K/uL Abs Immat Gran (auto) 0.05 (0.00-0.30) K/uL Imm/Tot Granulo (auto) 1.0 % Sodium 140 (135-149) mmol/L Potassium 3.7 (3.6-5.1) mmol/L Chloride 104 (96-114) mmol/L Carbon Dioxide 26 (20-32) mmol/L Anion Gap 10 (7-15) mEq/L BUN 14 (5-24) mg/dL Creatinine 1.0 (0.5-1.5) mg/dL Estimated Creat Clear 115.58 Estimated GFR 106 ml/min Glucose 98 (60-115) mg/dL Calcium 9.6 (8.4-10.6) mg/dL Total Bilirubin 0.2 (0.1-1.5) mg/dL AST 25 (12-35) U/L ALT 18 (4-50) U/L Alkaline Phosphatase 63 (40-150) U/L Total Protein 8.1 (6.0-8.3) g/dL Albumin 4.9 (3.3-5.0) g/dL Lipase 53 (23-300) U/L Discharge Plan Discharge Clinical Impression: Abdominal pain Patient Disposition: Home, Self-Care Condition: Stable Instructions: Abdominal Pain (ED) Additional Instructions: Stop ibuprofen as this may be contributing to your stomach pain. Continue Tylenol as previous. Add sucralfate as directed. Continue outpatient follow-up. Small frequent meals. Continue Prilosec/Prevacid as previous. Activity Level: No Restrictions Discharge Diet: Regular Prescriptions: New sucralfate 1 gram tablet 1 g PO BID Qty: 60 2RF No Action minocycline 100 mg capsule 100 mg PO BID Qty: 180 0RF clindamycin phosphate 1 % solution 1 applic topical QHS Qty: 60 1RF fluocinolone 0.01 % solution 1 applic topical BID Qty: 60 2RF Follow Up/Referrals: Provider,Not a Local [Primary Care Provider] - Stand Alone Forms: [employer] Info Instructions
[2024-08-09 04:17] LABS: Basophils Absolute Auto 0.01 K/uL (0.00-0.30); Basophils Percent Auto 0.2 % (0.0-3.0); Eosinophils Absolute Auto 0.31 K/uL (0.00-0.50); Eosinophils Percent Auto 6.3 % (0.0-7.0); Hematocrit 43.6 % (37.0-53.0); Hemoglobin* 13.2 gm/dL (13.5-17.5); Immature Granulocytes Abs Auto 0.05 K/uL (0.00-0.30); Lymphocytes Percent Auto 44.7 % (20-44); Mean Corpuscular HGB Conc 30 gm/dL (32-36); Mean Corpuscular Hemoglobin 21 pg (26-34); Mean Corpuscular Volume 69 fL (80-100); Monocytes Percent Auto 11.6 % (0.0-11.0); Neutrophils Percent Auto 36.2 % (42.0-72.0); Platelet Count* 220 K/uL (140-440); RDW Coefficient of Variation % 14.8 % (11.5-15.5); Red Blood Count 6.33 m/uL (4.30-5.90); White Blood Count* 4.92 K/uL (4.50-11.00)
[2024-08-09 04:18] LABS: Slide Review Reflex No
--- NOTE | 2024-08-09 04:28 | ED.NURSE ---
pt taken for CT scan
[2024-08-09 04:30] LABS: Albumin* 4.9 g/dL (3.3-5.0)
[2024-08-09 04:31] LABS: Chloride* 104 mmol/L (96-114); Potassium* 3.7 mmol/L (3.6-5.1); Sodium* 140 mmol/L (135-149)
[2024-08-09 04:33] LABS: Anion Gap 10 mEq/L (7-15); Aspartate Amino Transferase* 25 U/L (12-35); Bilirubin Total* 0.2 mg/dL (0.1-1.5); Carbon Dioxide* 26 mmol/L (20-32); Est. Creatinine Clearance* 115.58; Estimated Glomerular Filt Rate 106 ml/min; Total Protein* 8.1 g/dL (6.0-8.3)
[2024-08-09 04:34] LABS: Alanine Aminotransferase* 18 U/L (4-50); Alkaline Phosphatase* 63 U/L (40-150); Blood Urea Nitrogen* 14 mg/dL (5-24); Calcium* 9.6 mg/dL (8.4-10.6); Glucose* 98 mg/dL (60-115); Lipase* 53 U/L (23-300)
[2024-08-09] MEDS: SUCRALFATE 1 GM TABLET PO (04:37)
== END 2024-08-09 05:40 | disposition home or self-care (01) ==
PROVIDERS: Emergency Provider Internal Medicine
DX: R10.12 Left upper quadrant pain (principal)
CPT/HCPCS: 36415; 74177; 80053; 83690; 85025; 99283; 99284; 99285; A9270; Q9967

== ENCOUNTER 2024-08-27 12:02 | Outpatient (CLI) | payer BC, SELFPAY ==
--- NOTE | 2024-08-27 12:54 | W.ANESCHARGE ---
Anesthesia Charges Start Date/Time Anesthesia Start Date: 08/27/24 Anesthesia Start Time: 12:37 Stop Date/Time Anesthesia Stop Date: 08/27/24 Anesthesia Stop Time: 12:52
== END 2024-08-27 12:03 | disposition home or self-care (01) ==
PROVIDERS: Visit Provider Surgery
DX: R10.13 Epigastric pain (principal); K22.89 Other specified disease of esophagus
CPT/HCPCS: 00731; 43239; 88305; J2704; J3010